=== PATIENT | female | born 1970 | race Caucasian/White ===

== ENCOUNTER 2016-08-13 09:57 | Emergency (ER) | payer OTHER ==
[~2016-08-13] VITALS: Wt 91.5 kg
--- NOTE | 2016-08-13 10:15 | ERD ---
ER Documentation Chief Complaint Date/Time DATE: 08/13/16 TIME: 10:13 Chief Complaint BACK PAIN, RIGHT SHOULDER PAIN, RADIATING TO RIGHT RIB AREA, HX OF [place] HPI 46-year-old female with history of gallstones comes to emergency department 3 day history of right upper quadrant abdominal pain that radiates to her right shoulder. She also states that goes to her epigastric region, described as burning and sharp pain, intermittent. She denies any fevers, chills, nausea or vomiting. She has not tried any pain medications thus far. Patient is scheduled for an elective cholecystectomy on August [address] John RIVERO All systems reviewed and are negative except as per history of present illness. Medications Home Meds Active Scripts Nitrofurantoin Monohyd Macrocr* (Macrobid*) 100 Mg Capsr, 100 MG PO BID for 14 Days, CAP Prov:JEFFREY GAMEZ PA-C 08/13/16 Naproxen* (Naprosyn*) 500 Mg Tablet, 500 MG PO BID Y for PAIN AND/OR INFLAMMATION, #30 TAB Prov:JEFFREY GAMEZ PA-C 08/13/16 Hydrocodone/Acetaminophen ([place] 5-325 Tablet) 1 Each Tablet, 1 TAB PO Q6H Y for PAIN, #10 TAB Prov:JEFFREY GAMEZ PA-C 08/13/16 Allergies Allergies: Coded Allergies: penicillamine (Verified Allergy, Severe, facial swelling, 08/13/16) Physical Exam Vitals Vital Signs Date Time Temp Pulse Resp B/P Pulse Ox O2 Delivery O2 Flow Rate FiO2 08/13/16 10:00 98.7 93 17 141/69 98 Physical Exam General: Well-developed, well-nourished. The patient appears in no acute distress. HEENT: Head is normocephalic, atraumatic. No scleral icterus. Neck: Supple. Nontender. Lungs: Clear to auscultation. Normal air movement. Heart: Regular rate and rhythm. S1 and S2 are normal. No murmurs, gallops, or rubs. Abdomen: Soft, tender in the epigastrium and right upper quadrant, nondistended. Bowel sounds are normoactive. Extremities: No clubbing or cyanosis. Normal pulses. Moving extremities x 4. No weakness. Neurologic: Alert and oriented 3. No focal deficits. Skin: Normal turgor. No rash or lesions. Result Diagram: 08/13/16 1023 08/13/16 1023 Results 24 hrs Laboratory Tests Test 08/13/16 10:23 08/13/16 11:30 White Blood Count 6.710^3/ul Red Blood Count 4.3510^6/ul Hemoglobin 13.1g/dl Hematocrit 38.7% Mean Corpuscular Volume 89.0fl Mean Corpuscular Hemoglobin 30.1pg Mean Corpuscular Hemoglobin Concent 33.9g/dl Red Cell Distribution Width 12.3% Platelet Count 36616^3/UL Mean Platelet Volume 10.4fl Neutrophils % 64.0% Lymphocytes % 27.1% Monocytes % 7.2% Eosinophils % 1.0% Basophils % 0.4% Nucleated Red Blood Cells % 0.0/100WBC Neutrophils # 4.310^3/ul Lymphocytes # 1.810^3/ul Monocytes # 0.510^3/ul Eosinophils # 0.110^3/ul Basophils # 0.010^3/ul Nucleated Red Blood Cells # 0.010^3/ul Sodium Level 142mmol/L Potassium Level 4.0mmol/L Chloride Level 107mmol/L Carbon Dioxide Level 24mmol/L Anion Gap 15 Blood Urea Nitrogen 7mg/dl Creatinine 0.55mg/dl Glucose Level 100mg/dl Calcium Level 9.7mg/dl Total Bilirubin 0.3mg/dl Direct Bilirubin 0.00mg/dl Indirect Bilirubin 0.3mg/dl Aspartate Amino Transf (AST/SGOT) 26IU/L Alanine Aminotransferase (ALT/SGPT) 36IU/L Alkaline Phosphatase 87IU/L Total Protein 7.9g/dl Albumin 5.1g/dl Globulin 2.80g/dl Albumin/Globulin Ratio 1.82 Lipase 33U/L Urine Color LT. YELLOW Urine Clarity CLEAR Urine pH 6.5 Urine Specific [place] 1.015 Urine Ketones TRACE Urine Nitrite NEGATIVE Urine Bilirubin NEGATIVE Urine Urobilinogen 0.2 E.U./dL Urine Leukocyte Esterase 3+ Urine Microscopic RBC 0-2/HPF Urine Microscopic WBC 10-25/HPF Urine Epithelial Cells MANY Urine Bacteria FEW Urine Mucus FEW Urine Hemoglobin TRACE Urine Glucose NEGATIVE% Urine Total Protein NEGATIVE Current Medications Medications (Trade) Dose Ordered Sig/Terry Route PRN Reason Start Time Stop Time Status Last Admin Dose Admin Acetaminophen/ Hydrocodone Bitart ([place] (5/325)) 1 tab ONCE ONCE PO 6/8/17 10:30 08/13/16 10:31 DC Ceftriaxone Sodium (Rocephin) 1 gm ONCE ONCE IM 08/13/16 13:00 08/13/16 13:00 DC Lidocaine (Xylocaine 1% (Mdv) 20 ml) 2 ml ONCE ONCE IM 08/13/16 13:00 08/13/16 13:00 DC Patient: TEJA HUBER : 1970 Age: 46 Sex: F MR #: [id number] DOS: 08/13/16 0000 Ordering MD: JEFFREY GAMEZ PA-C Location: [facility] Room/Bed: PROCEDURE: US Abdomen (right upper quadrant). CLINICAL INDICATION: Right upper quadrant pain TECHNIQUE: Multiple real-time longitudinal and transverse images of the right upper quadrant of the abdomen were acquired utilizing a curved array transducer. Images were reviewed on a high-resolution PACS workstation. COMPARISON: None FINDINGS: The liver is normal in size with a slightly coarsened echotexture suggesting mild steatosis without focal mass or intrahepatic biliary dilatation. There is normal hepatopedal flow within the main portal vein. The gallbladder is remarkable for multiple small echogenic, shadowing calculi without wall thickening. The common bile duct measures 3.4 mm in maximal dimension. The visualized portions of the pancreas are unremarkable with obscuration of the tail of the pancreas. No free fluid is identified. The right kidney measures 11.0 cm in length. There is normal echogenicity within the right kidney. There is no perinephric fluid collection. No hydronephrosis, mass, or calculus is seen. IMPRESSION: 1. Coarsened echotexture of the liver suggesting mild diffuse steatosis. 2. Cholelithiasis without evidence of gallbladder wall thickening or biliary tree dilatation. RPTAT: [facility] Physician [place] Date Time Electronically viewed and signed by Physician [place] on 08/13/2016 10: 52 / Procedures/[facility] ED course: Patient had labs and urine obtained. She is given [place] 5/325 mg for pain. MDM: 46-year-old female comes in with epigastric pain and right upper quadrant pain, no evidence of acute cholecystitis or choledocholithiasis. All labs are unremarkable, no leukocytosis or transaminitis or evidence of pancreatitis. Urine does show multiple white blood cells, as well as 3+ leukocyte esterase. She does not have any fever, tachycardia or signs of pyelonephritis. She will be treated with Macrobid, no signs of pyelonephritis. She will be given [place] as well as Naprosyn for pain control. No evidence of a surgical abdominal process, patient is stable for outpatient management. Departure Diagnosis: Primary Impression: Biliary colic Additional Impression: UTI (urinary tract infection) Condition: JEFFREY Barillas PA-C Aug 13, 2016 10:15
[2016-08-13] MEDS: HYDROCODONE/APAP (5/325) TAB PO ONE ×2 (10:26→10:28)
--- NOTE | 2016-08-13 10:52 | RADRPT ---
PROCEDURE: US Abdomen (right upper quadrant). CLINICAL INDICATION: Right upper quadrant pain TECHNIQUE: Multiple real-time longitudinal and transverse images of the right upper quadrant of th e abdomen were acquired utilizing a curved array transducer. Images were reviewed on a high-resoluti on PACS workstation. COMPARISON: None FINDINGS: The liver is normal in size with a slightly coarsened echotexture suggesting mild steatosis without focal mass or intrahepatic biliary dilatation. There is normal hepatopedal flow within the main por asad vein. The gallbladder is remarkable for multiple small echogenic, shadowing calculi without wal l thickening. The common bile duct measures 3.4 mm in maximal dimension. The visualized portions o f the pancreas are unremarkable with obscuration of the tail of the pancreas. No free fluid is iden tified. The right kidney measures 11.0 cm in length. There is normal echogenicity within the right kidney. There is no perinephric fluid collection. No hydronephrosis, mass, or calculus is seen. IMPRESSION: 1. Coarsened echotexture of the liver suggesting mild diffuse steatosis. 2. Cholelithiasis without evidence of gallbladder wall thickening or biliary tree dilatation. RPTAT: [facility] Physician [place] Date Time Electronically viewed and signed by Physician [place] on 08/13/2016 10:52 ASIM/
[2016-08-13 11:23] LABS: ADD SCAN DIFF NO
[2016-08-13 11:38] LABS: BASOPHILS % 0.4 % (0.0-2.0); EOSINOPHILS # 0.1 10^3/ul (0.0-0.5); HEMATOCRIT 38.7 % (37.0-47.0); HEMOGLOBIN 13.1 g/dl (12.0-16.0); LYMPHOCYTES # 1.8 10^3/ul (0.8-2.9); LYMPHOCYTES % 27.1 % (15.0-51.0); MEAN CORPUSCULAR HEMOGLOBIN 30.1 pg (29.0-33.0); MEAN CORPUSCULAR HGB CONC 33.9 g/dl (32.0-37.0); MEAN PLATELET VOLUME 10.4 fl (7.4-10.4); MONOCYTE # 0.5 10^3/ul (0.3-0.9); MONOCYTES % 7.2 % (0.0-11.0); NEUTROPHIL # 4.3 10^3/ul (1.6-7.5); PLATELET COUNT 332 10^3/UL (140-415); RED BLOOD COUNT 4.35 10^6/ul (4.20-5.40); RED CELL DISTRIBUTION WIDTH 12.3 % (11.5-14.5); WHITE BLOOD COUNT 6.7 10^3/ul (4.8-10.8)
[2016-08-13 11:43] LABS: ALBUMIN 5.1 g/dl (3.3-4.9); ALBUMIN/GLOBULIN RATIO 1.82; BILIRUBIN,INDIRECT 0.3 mg/dl (0-1.1); BILIRUBIN,TOTAL 0.3 mg/dl (0.2-1.3); CALCIUM 9.7 mg/dl (8.4-10.2); CREATININE 0.55 mg/dl (0.44-1.00); TOTAL PROTEIN 7.9 g/dl (6.1-8.1)
[2016-08-13 12:14] LABS: ADD UMIC YES; URINE BILIRUBIN (Dip) NEGATIVE (NEGATIVE); URINE BLOOD (Dip) TRACE (NEGATIVE); URINE COLOR LT. YELLOW (YELLOW); URINE GLUCOSE (Dip) NEGATIVE (NEGATIVE); URINE KETONES (Dip) TRACE (NEGATIVE); URINE LEUKOCYTE ESTERASE (Dip) 3+ (NEGATIVE); URINE NITRITE (Dip) NEGATIVE (NEGATIVE); URINE TOTAL PROTEIN (Dip) NEGATIVE (NEGATIVE); URINE UROBILINOGEN (Dip) 0.2 E.U./dL (0.1-1.0)
[2016-08-13 12:34] LABS: BACTERIA,URINE FEW; URINE RBCS 0-2 /HPF (0)
[2016-08-13 12:35] LABS: MUCUS,URINE FEW
[2016-08-13] MEDS ORDERED: CEPH-443 PO (12:40)
[2016-08-13] MEDS ORDERED: NAPR-260 PO (12:40)
[2016-08-13] MEDS ORDERED: HYDR-906 PO (12:40)
[2016-08-13] MEDS ORDERED: CIPR500T4 PO (12:48)
[2016-08-13] MEDS ORDERED: NITR-58 PO (12:49)
[2016-08-13] MEDS ORDERED: LIDOCAINE 1% (MDV) 20 ML INJ IM ONE (13:00)
[2016-08-13] MEDS ORDERED: CEFTRIAXONE 1 GM INJ IM ONE (13:00)
== END 2016-08-13 13:25 | disposition home or self-care (01) ==
LOC: FTE 09:57
DX: K80.50 Calculus of bile duct without cholangitis or cholecystitis without obstruction (principal); N39.0 Urinary tract infection, site not specified
CPT/HCPCS: 36415; 76705; 80053; 81001; 83690; 85025; Z7502; Z7610